=== PATIENT | male | born 1970 | race Caucasian/White ===

== ENCOUNTER 2023-05-13 17:43 | Emergency (ER) | payer MEDICAID, SELFPAY ==
[2023-05-13 18:17] VITALS: BP 129/93; RESP 16; TEMP 37; O2SAT 96; BMI 35.4
[2023-05-13 18:53] VITALS: BP 148/90; PULSE 60; RESP 16; TEMP 36.7; O2SAT 97
--- NOTE | 2023-05-13 19:30 | CT_ITS ---
The [address] [address] Patient Name: JUNAID SANTILLAN MRN: [id number] date: 1970 Sex: M Assigned Patient Location: ER Current Patient Location: Accession/Order Number: [id number] Exam Date: 05/13/2023 20:05 Report Date: 05/13/2023 21:02 At the request of: NOHEMI MEZA Procedure: CT abdomen pelvis wo con EXAMINATION: CT ABDOMEN AND PELVIS WITHOUT IV CONTRAST CLINICAL HISTORY: 2 day history of dysuria TECHNIQUE: Non-IV contrast imaging of the abdomen and pelvis was performed using standard technique, scanning from just above the dome of the diaphragm to the symphysis pubis. Unenhanced imaging is limited for the evaluation of some intra-abdominal and pelvic pathology. All CT scans at this facility use dose modulation, iterative reconstruction, and/or weight based dosing when appropriate to reduce radiation dose to as low as reasonably achievable. Contrast: IV: None COMPARISON: None. RESULT: Abdomen / Pelvis: Liver: Unremarkable. Biliary: S/p cholecystectomy. Spleen: No splenomegaly. Pancreas: Unremarkable. Adrenals: Normal. Kidneys: 6 mm distal right ureteral obstructing calculus with moderate hydroureteronephrosis, edematous enlargement of the right kidney and perinephric and periureteral soft tissue stranding. Multiple other bilateral nonobstructing renal calculi are noted the largest in the left inferior pole measures 4 mm. GI Tract: No bowel dilation. Normal appendix. No diverticulosis. Lymph Nodes: No lymphadenopathy. Mesentery/peritoneum: No ascites. Retroperitoneum: No mass. Vasculature: Atherosclerotic vascular disease without aneurysm. Pelvis: No mass or ascites. Urinary bladder is unremarkable. Bones/Soft Tissues: Degenerative changes of the lumbar spine. Lower thorax: Unremarkable. CT/CT abdomen pelvis wo con IMPRESSION: 6 mm distal right ureteral obstructing calculus with moderate hydroureteronephrosis, perinephric and periureteral soft tissue stranding. Multiple other bilateral nonobstructing renal calculi. Electronically authenticated by: DANNI COBURN Date: 05/13/2023 21:02
--- NOTE | 2023-05-13 19:32 | ED_ITS ---
HPI - General Adult General Chief complaint: Urogenital-Male Stated complaint: BACK PAIN Time Seen by Provider: 05/13/23 18:58 Source: patient Mode of arrival: walk-in Limitations: no limitations History of Present Illness HPI narrative: [age] old male to the emergency department which included a right flank pain. He reports the pain radiates into the right groin. It began two or three days ago. He reports it is more severe than his typical kidney stone pain. He has relapsing remitting course. No medications attempted at home. He reports he is increase fluids at home and attempts to pass what he believes is a kidney stone but has not yet been able to do it. He denies any nausea or vomiting. He denies any fever, sweats, chills. He is otherwise at his baseline health. He does not currently follow with urology. Related Data Home Medications Medication Instructions Recorded Confirmed baclofen 10 mg tablet 10 mg PO BID 05/13/23 05/13/23 gabapentin 400 mg capsule 400 mg PO TID 05/13/23 05/13/23 loratadine 10 mg tablet 10 mg PO Q24H 05/13/23 05/13/23 meloxicam 15 mg tablet 15 mg PO DAILY 05/13/23 05/13/23 metoprolol tartrate 100 mg tablet 100 mg PO Q12H 05/13/23 05/13/23 omeprazole 20 mg capsule,delayed 20 mg PO QDAY 05/13/23 05/13/23 release Previous Rx's Medication Instructions Recorded ondansetron 4 mg disintegrating 4 mg PO Q8H PRN nausea and 05/13/23 tablet vomiting 4 days #16 tabs oxycodone-acetaminophen 5 mg-325 1 tab PO Q6H PRN pain 3 days #12 05/13/23 mg tablet (Percocet) tabs tamsulosin 0.4 mg capsule (Flomax) 0.4 mg PO DAILY #14 caps 05/13/23 Allergies Allergy/AdvReac Type Severity Reaction Status Date / Time Penicillins Allergy Unknown Verified 05/13/23 18:17 Review of Systems ROS Status of ROS 10 or more systems reviewed and unremarkable except as noted in history and below PFSH PFSH Social History Smoking status: Former smoker Exam Narrative Exam Narrative: VITALS: I have reviewed the triage vital signs. GENERAL: Well developed, well appearing adult in no acute distress. NEURO: Alert and oriented. Moves all extremities. Face is symmetric and expressive. EYES: PERRL. No scleral icterus or conjunctival injection. No discharge. HENT: Normocephalic, atraumatic. Hearing is grossly intact. Nares grossly patent and without discharge. Mucous membranes moist. NECK: No JVD. Patient moves neck without restriction. CARDIO: Rhythm regular. Normal rate. No murmur, rub, or gallop. Pulses equal bilaterally in the upper and lower extremity. No lower extremity edema. PULM: Lungs clear to auscultation in all adams. No wheezes, rales, or rhonchi. No conversational dyspnea. No splinting, stridor, or accessory muscle use. GI/: Abdomen is soft and non-tender. Normoactive bowel sounds. EXTREMITIES: Symmetric muscle bulk. No joint swelling. No clubbing, cyanosis, or deformity. SKIN: Warm and dry. Normal turgor. No rash or lesions appreciated. PSYCH: Mood, affect, and interaction is appropriate to the setting. Constitutional Vital Signs, click to edit/add: Last Vital Signs Temp 98.1 F 05/13/23 18:53 Pulse 60 05/13/23 18:53 Resp 16 05/13/23 18:53 BP 148/90 H 05/13/23 18:53 Pulse Ox 97 05/13/23 18:53 O2 Del Method Room Air 05/13/23 18:17 Course Vital Signs Vital signs: Vital Signs Temperature 98.6 F 05/13/23 18:17 Respiratory Rate 16 05/13/23 18:17 Blood Pressure 129/93 H 05/13/23 18:17 Pulse Oximetry 96 05/13/23 18:17 Oxygen Delivery Method Room Air 05/13/23 18:17 Temperature 98.1 F 05/13/23 18:53 Pulse Rate 60 05/13/23 18:53 Respiratory Rate 16 05/13/23 18:53 Blood Pressure 148/90 H 05/13/23 18:53 Pulse Oximetry 97 05/13/23 18:53 Oxygen Delivery Method Room Air 05/13/23 18:17 Medical Decision Making MDM Narrative Medical decision making narrative: MDM Data External documents reviewed: Not applicable My EKG interpretation: Not applicable My CT interpretation: As below My X-ray interpretation: Not applicable My Ultrasound interpretation: Not applicable Decision rules/scores evaluated: Not applicable Discussed with: Not applicable Treatment and Disposition ED Course: 52-year-old male with right flank pain. Vital stable, patient is afebrile. He reports pain is similar to past kidney stones but worse. CT scan is ordered to rule out other acute process such as diverticulitis, appendicitis. Confirm diagnosis of suspected kidney stone. Basic labs ordered. IV Toradol, morphine, Zofran for symptoms. Fluids given. Patient agrees with this plan. Laboratory evaluation reviewed and noted. He has some renal insufficiency which patient reports is chronic. Clinically also appears mildly dehydrated. He was given fluids. Pain well controlled. 6mm distal ureteral stone with mod hydro. Findings discussed with the patient. His symptoms have improved and he is ready for discharge home. He says he's passed similar stones in the past. He'll be sent with Flomax, naproxen, Percocet, Zofran scripts. He is given a urology referral. He is instructed call them 1st thing on Tuesday morning to arrange for follow-up care. Return precautions were discussed. All questions were answered. The patient was discharged home. Shared decision making: As above Code status: Not addressed during this visit Medical Records Medical records reviewed: Yes I reviewed the patient's medical records Lab Data Lab results reviewed: Yes I reviewed the patient's lab results Labs: Lab Results 05/13/23 05/13/23 Range/Units 19:57 21:19 WBC 13.1 H (4.0-11.0) 10^3/uL RBC 6.34 H (4.70-6.10) 10^6/uL Hgb 18.9 H (14.0-18.0) g/dL Hct 54.6 H (42.0-54.0) % MCV 86.1 (80.0-94.0) fL MCH 29.8 (25.9-34.0) pg MCHC 34.6 (29.9-35.2) g/dL RDW 13.0 (11.0-15.0) % Plt Count 187 (150-450) 10^3/uL MPV 8.7 L (9.5-13.5) fL Neut % (Auto) 82.3 H (43.0-75.0) % Lymph % (Auto) 10.9 L (20.5-60.0) % [place] % (Auto) 6.0 (1.7-12.0) % Eos % (Auto) 0.2 L (0.9-7.0) % Baso % (Auto) 0.3 (0.2-2.0) % Neut # (Auto) 10.8 H (1.4-6.5) 10^3/uL Lymph # (Auto) 1.4 (1.2-3.8) 10^3/uL [place] # (Auto) 0.8 (0.3-0.8) 10^3/uL Eos # (Auto) 0.0 (0.0-0.7) 10^3/uL Baso # (Auto) 0.0 (0.0-0.1) 10^3/uL Abs Immat Gran (auto) 0.04 H (0.00-0.03) 10^3/uL Imm/Tot Granulo (auto) 0.3 (0.0-0.5) % Sodium 133 L (136-145) mmol/L Potassium 4.6 (3.5-5.1) mmol/L Chloride 100 (98-107) mmol/L Carbon Dioxide 20.9 L (21.0-32.0) mmol/L Anion Gap 16.7 BUN 22.0 H (7.0-18.0) mg/dL Creatinine 1.43 H (0.70-1.30) mg/dL Est GFR ( Amer) >60 (>=60) Est GFR (Non-Af Amer) 52 L (>=60) BUN/Creatinine Ratio 15.4 Glucose 168 H (74-106) mg/dL Calcium 8.3 L (8.5-10.1) mg/dL Urine Color Yellow (YELLOW) Urine Clarity Clear (CLEAR) Urine pH 5.5 (5.0-9.0) Ur Specific [place] >=1.030 A (1.005-1.025) Urine Protein 30 A (NEG/TRACE) mg/dL Urine Glucose (UA) 250 A (NEGATIVE) mg/dL Urine Ketones 15 A (NEGATIVE) mg/dL Urine Occult Blood Large A (NEGATIVE) Urine Nitrite Negative (NEGATIVE) Urine Bilirubin Small A (NEGATIVE) Urine Urobilinogen 1.0 (0.2-1.0) EU/dL Ur Leukocyte Esterase Negative (NEGATIVE) Discharge Plan Discharge Chief Complaint: Urogenital-Male Clinical Impression: Calculus, ureteral, Dehydration Time of Disposition Decision: 21:42 Mode of Transportation: Private Vehicle Prescriptions / Home Meds: New ondansetron 4 mg tablet,disintegrating 4 mg PO Q8H PRN (Reason: nausea and vomiting) 4 Days Qty: 16 0RF tamsulosin [Flomax] 0.4 mg capsule 0.4 mg PO DAILY Qty: 14 0RF oxycodone-acetaminophen [Percocet] 5-325 mg tablet 1 tab PO Q6H MDD 4 tabs PRN (Reason: pain) 3 Days Qty: 12 0RF No Action meloxicam 15 mg tablet 15 mg PO DAILY gabapentin 400 mg capsule 400 mg PO TID baclofen 10 mg tablet 10 mg PO BID loratadine 10 mg tablet 10 mg PO Q24H metoprolol tartrate 100 mg tablet 100 mg PO Q12H omeprazole 20 mg capsule,delayed release(DR/EC) 20 mg PO QDAY Print Language: Kiswahili Instructions: Dehydration (ED), Kidney Stones (ED), How to Strain Your Urine (ED) Additional Instructions: Strain urine. Repeat blood work in 1 week to check kidney function with PCP. Increase fluids. Use medications as prescribed. Stand Alone Forms: Portal Instructions Referrals: Agustín Hurtado MD [Physician] - As soon as possible (Call the office Tuesday morning to arrange for follow-up visit [facility]. )
[2023-05-13] MEDS: KETOROLAC TROMETHAMINE 30 MG/ML VIAL 15 MG IVP (19:46)
[2023-05-13] MEDS: MORPHINE SULFATE 2 MG/ML SYRINGE 4 MG IV (19:46)
[2023-05-13] MEDS: 0.9 % SODIUM CHLORIDE 1,000 ML 999 ML IV (19:47)
[2023-05-13] MEDS: ONDANSETRON PF 4 MG/2 ML VIAL IV (19:47)
[2023-05-13 20:06] LABS: Basophils Percent Auto 0.3 % (0.2-2.0); Eosinophils Percent Auto 0.2 % (0.9-7.0); Hematocrit 54.6 % (42.0-54.0); Hemoglobin 18.9 g/dL (14.0-18.0); Immature Granulocytes Abs Auto 0.04 10^3/uL (0.00-0.03); Immature Granulocytes Pct Auto 0.3 % (0.0-0.5); Lymphocytes Absolute Auto 1.4 10^3/uL (1.2-3.8); Lymphocytes Percent Auto 10.9 % (20.5-60.0); Mean Corpuscular HGB Conc 34.6 g/dL (29.9-35.2); Mean Corpuscular Hemoglobin 29.8 pg (25.9-34.0); Mean Corpuscular Volume 86.1 fL (80.0-94.0); Mean Platelet Volume 8.7 fL (9.5-13.5); Monocytes Absolute Auto 0.8 10^3/uL (0.3-0.8); Neutrophils Absolute Auto 10.8 10^3/uL (1.4-6.5); Neutrophils Percent Auto 82.3 % (43.0-75.0); Platelet Count 187 10^3/uL (150-450); Red Blood Count 6.34 10^6/uL (4.70-6.10); White Blood Count 13.1 10^3/uL (4.0-11.0)
[2023-05-13 20:11] LABS: Anion Gap 16.7; BUN Creatinine Ratio 15.4; Calcium 8.3 mg/dL (8.5-10.1); Carbon Dioxide 20.9 mmol/L (21.0-32.0); Chloride 100 mmol/L (98-107); Estimated GFR (African America >60 (>=60); Estimated GFR (Non-African Ame 52 (>=60); Glucose 168 mg/dL (74-106); Potassium 4.6 mmol/L (3.5-5.1); Sodium 133 mmol/L (136-145)
[2023-05-13 21:31] LABS: Bilirubin Urine SMALL (NEGATIVE); Blood Urine LARGE (NEGATIVE); Clarity Urine CLEAR (CLEAR); Color Urine YELLOW (YELLOW); Glucose Urine UA 250 mg/dL (NEGATIVE); Ketones Urine 15 mg/dL (NEGATIVE); Leukocyte Esterase Urine NEGATIVE (NEGATIVE); Nitrite Urine NEGATIVE (NEGATIVE); Protein Urine 30 mg/dL (NEG/TRACE); Specific Gravity Urine >=1.030 (1.005-1.025); pH Urine 5.5 (5.0-9.0)
[2023-05-13 21:32] LABS: Urine Microscopic Indicated YES
[2023-05-13 21:39] LABS: Bacteria Urine TRACE #/HPF (NONE SEEN); Cast Seen? SEEN #/LPF (NONE SEEN); Crystals Seen? None Seen #/HPF (None Seen); Hyaline Casts Urine FEW; Mucus Urine LARGE (NONE SEEN); Squamous Epithelial Cell Urine RARE #/LPF (NONE/RARE); Urine Culture Indicated NO
[2023-05-13 22:20] VITALS: BP 132/90; PULSE 72; RESP 16; O2SAT 99
== END 2023-05-13 22:23 | disposition home or self-care (01) ==
PROVIDERS: Emergency Provider Student in an Organized Health Care Education/Training Program
DX: E86.0 Dehydration (principal); N13.2 Hydronephrosis with renal and ureteral calculous obstruction; Z79.899 Other long term (current) drug therapy; Z87.891 Personal history of nicotine dependence; Z87.442 Personal history of urinary calculi
CPT/HCPCS: 36415; 74176; 80048; 81001; 85025; 96361; 96374; 96375; 99285